=== PATIENT | male | born 1980 | race Caucasian/White ===

== ENCOUNTER 2018-03-05 02:39 | Emergency (ER) | payer MEDICAID, OTHER ==
[~2018-03-05] VITALS: Ht 162.6 cm; Wt 69.0 kg
[~2018-03-05 02:39] MED LIST: CARI-75 PO; HYDR-4383 PO; IBUP-812 PO
[2018-03-05 02:48] VITALS: BP 116/91
[2018-03-05] MEDS ORDERED: acetaminophen 325mg tablet PO ONE (03:10)
[2018-03-05] MEDS ORDERED: cyclobenzaprine 10mg tablet PO ONE (03:10)
[2018-03-05] MEDS ORDERED: ketorolac trometh inj. 60 MG/2 ML VIAL IM ONE (03:10)
[2018-03-05] MEDS ORDERED: ACET-2615 PO (03:11)
[2018-03-05] MEDS ORDERED: IBUP-1985 PO (03:11)
[2018-03-05] MEDS ORDERED: CYCL-1 PO (03:11)
== END 2018-03-05 03:38 | disposition home or self-care (01) ==
LOC: ER 02:40
DX: M54.5 Low back pain (principal); Z87.442 Personal history of urinary calculi
CPT/HCPCS: 96372; 99283; J1885